=== PATIENT | male | born 1945 | race Caucasian/White ===

== ENCOUNTER 2018-12-16 09:05 | Emergency (ER) | payer MEDICARE ==
[2018-12-16 09:26] VITALS: BP 155/75
--- NOTE | 2018-12-16 09:43 | UC ---
Skin Complaint HPI - HPI Summary HPI Summary: Stapes inserted into left foreleg wound 10 days ago, and given preventative doxycycline following insertion of mitali. Comes today for removal of stable, but wound appears infected and removal of several mitali shows some wound separation and risk of dehiscence. No fever, increase pain or chills. History of prediabbetes but does not know his a1c. Has never been treated. About 1.5 years ago he was given cephalexin for treatment following an elbow surgery; developed diarrhea which has improved but persisted to this day. GI evaluation has shown a decrease in his gut bacterial jessica. No longer using probiotics. - History of Current Complaint Chief Complaint: UCLowerExtremity Time Seen by Provider: 12/16/18 09:31 Stated Complaint: MITALI TO BE REMOVED-DONE AT [facility] Hx Obtained From: Patient Onset/Duration: Gradual Onset, Lasting Days - 5 Skin Exposure Onset/Duration: Days Ago - 10 Onset Severity: Mild Current Severity: Moderate Pain Intensity: 1 Location: Discrete - left foreleg Aggravating Factor(s): Nothing Alleviating Factor(s): Nothing Associated Signs & Symptoms: Positive: Negative Related History: Trauma - Allergy/Home Medications Allergies/Adverse Reactions: Allergies Allergy/AdvReac Type Severity Reaction Status Date / Time cephalexin [From Keflex] AdvReac Diarrhea Verified 12/16/18 09:23 Home Medications: Home Medications Atorvastatin* [Lipitor*] 1 dose PO 1700 12/16/18 [History Confirmed 12/16/18] Losartan TAB* [Cozaar TAB*] 1 dose PO DAILY 12/16/18 [History Confirmed 12/16/18 ] Venlafaxine EXT RELEASE CAP* [Effexor Xr CAP*] 1 dose PO DAILY 12/16/18 [ History Confirmed 12/16/18] PMH/Surg Hx/FS Hx/Imm Hx - Additional Past Medical History Additional PMH: pre-diabetes Previously Healthy: Yes Cardiovascular History: Hypertension, Other - paroxysmal a fib only if high intake of alcohol. Psychological History: Depression - Surgical History Surgical History: Yes Surgery Procedure, Year, and Place: [place] - Family History Known Family History: Positive: Diabetes - Social History Occupation: Employed Full-time Lives: With Family Alcohol Use: Daily Alcohol Amount: during summer Substance Use Type: None Smoking Status (MU): Former Smoker When Did the Patient Quit Smoking/Using Tobacco: 40+ year ago Review of Systems All Other Systems Reviewed And Are Negative: Yes Constitutional: Positive: Negative. Negative: Fever, Chills, Fatigue Skin: Positive: Other - erythema at site of wound Eyes: Positive: Negative Musculoskeletal: Positive: Other: - weight bearing easily without increasing pain in the leg Neurological: Positive: Negative Psychological: Positive: Negative Is Patient Immunocompromised?: No Physical Exam Triage Information Reviewed: Yes Appearance: Well-Appearing, No Pain Distress Vital Signs: Initial Vital Signs Temp 97.3 F 12/16/18 09:23 Pulse 66 12/16/18 09:23 Resp 14 12/16/18 09:23 BP 155/75 12/16/18 09:23 Pulse Ox 98 12/16/18 09:23 Respiratory: Positive: Lungs clear, Normal breath sounds Cardiovascular: Positive: RRR, No Murmur Skin Exam: Other - left foreleg with mitali mid tibial area, with surrounding erythema 5 x 13 cm around the wound. 2 mitali removed with drainage of purulent material, with separation of the wound margins. Remainder of mitali left in place. Mild pitting around the wound, minimal tenderness. Skin: Positive: Other - no lymphangitis Course/Dx - Course Course Of Treatment: Culture of wound obtained. Defer removal of mitali until associated cellulitis shows signs of resolution. Begin augmentin for treatment (bactrim considered, high risk of hyperkalemia combined with ARB). Elevate leg, advised no swimming. - Differential Diagnoses - Skin Complaint Differential Diagnoses: Cellulitis, Other - healed laceration. - Diagnoses Provider Diagnosis: Cellulitis and abscess of left leg Discharge - Sign-Out/Discharge Documenting (check all that apply): Patient Departure All imaging exams completed and their final reports reviewed: No Studies - Discharge Plan Condition: Stable Disposition: HOME Prescriptions: Amoxicillin/Clavulanate TAB* [Augmentin TAB 875*] 875 mg PO BID #20 tab Patient Education Materials: Cellulitis (ED) Referrals: Rosario Magaña MD [Primary Care Provider] - Additional Instructions: Begin augmentin for treatment of wound infection pending a culture and sensitivity, which should be available on the or . Follow up on the for reassessment and likely removal of mitali. I suggest addition of a probiotic or probiotic foods to help maintain gut jessica. Keep your leg elevated as much as possible to promote drainage. - Billing Disposition and Condition Condition: STABLE Disposition: Home
== END 2018-12-16 10:25 | disposition home or self-care (01) ==
LOC: UCCORT 09:05
DX: L03.116 Cellulitis of left lower limb (principal); T81.49XA Infection following a procedure, other surgical site, initial encounter; L02.818 Cutaneous abscess of other sites; Z88.1 Allergy status to other antibiotic agents; Z87.891 Personal history of nicotine dependence
CPT/HCPCS: 87070; 87205; 99202; G0463